=== PATIENT | female | born 1995 | race Hispanic/Latino ===

== ENCOUNTER 2019-12-06 07:59 | Emergency (ER) | payer SELFPAY | END 2019-12-06 09:25 | disposition home or self-care (01) | LOC: EDH 07:59 → EDBD 07:59 → EDH 09:25 | DX: A60.04 Herpesviral vulvovaginitis (principal); E11.9 Type 2 diabetes mellitus without complications; Z88.0 Allergy status to penicillin ==

== ENCOUNTER 2020-08-22 14:42 | Inpatient (IN) | payer SELFPAY ==
[~2020-08-22] VITALS: Ht 160 cm; Wt 86.8 kg
[2020-08-22 16:00] LABS: BASOPHILS % (AUTO) 0.1 % (0.0-5.0); EOSINOPHILS % (AUTO) 0.4 % (0.0-8.0); HEMATOCRIT 38.7 % (36-48); LYMPHOCYTES % (AUTO) 13.8 % (21.0-51.0); MEAN CORPUSCULAR HGB CONC 34.4 g/dL (32.0-36.0); MEAN CORPUSCULAR VOLUME 84.3 fL (79-99); MONOCYTES % (AUTO) 5.1 % (3.0-13.0); NEUTROPHILS % (AUTO) 80.2 % (40.0-77.0); PLATELET COUNT (AUTO) 445 K/uL (130-400); RED BLOOD CELL COUNT(AUTO) 4.59 MIL/uL (4.00-5.50); RED CELL DISTRIBUTION WIDTH 12.1 % (11.0-15.5); WHITE BLOOD COUNT (AUTO) 17.1 K/uL (4.8-10.8)
[2020-08-22] MEDS ORDERED: ONDANSETRON HCL 4 MG/2 ML VIAL ONE (16:05)
[2020-08-22] MEDS ORDERED: KETOROLAC TROMETHAMINE 30MG/ML ONE (16:05)
[2020-08-22 16:19] LABS: CREATININE 0.9 mg/dL (0.5-1.5); POTASSIUM 3.9 mmol/L (3.5-5.1)
[2020-08-22] MEDS ORDERED: IOHEXOL-350 75 ML VIAL IV ONE (16:23)
[2020-08-22 16:26] LABS: ALBUMIN 3.7 g/dL (3.5-5.0); BILIRUBIN,TOTAL 0.6 mg/dL (0.2-1.0); TOTAL PROTEIN, SERUM 8.1 g/dL (6.0-8.3)
[2020-08-22 18:25] LABS: APPEARANCE,URINE Cloudy (CLEAR); BILIRUBIN,URINE Negative (NEGATIVE); COLOR,URINE Yellow (YELLOW); GLUCOSE, URINE (UA) >=1000 mg/dL (NEGATIVE); KETONES,URINE >=80 mg/dL (NEGATIVE); LEUKOCYTE ESTERASE ,URINE Moderate (NEGATIVE); NITRATE,URINE Negative (NEGATIVE); OCCULT BLOOD,URINE Moderate (NEGATIVE); PROTEIN,URINE Trace mg/dL (NEGATIVE)
[2020-08-22 18:31] LABS: HCG,QUAL RESULT NEGATIVE (NEGATIVE)
[2020-08-22 18:41] LABS: BACTERIA,URINE Rare /HPF (None Seen)
[2020-08-22 18:42] LABS: SQUAMOUS EPITHELIAL CELL,UR Moderate /HPF (0-2)
[2020-08-22 18:43] LABS: YEAST,URINE BUDDING Rare /HPF (None Seen)
[2020-08-22 18:46] LABS: MUCUS,URINE Few LPF (None Seen)
[2020-08-22] MEDS ORDERED: ACETAMINOPHEN 325 MG TAB PO PRN ×2 (23:00)
[2020-08-22] MEDS: TAMSULOSIN HCL 0.4 MG CAP.ER.24H PO SCH (23:00)
[2020-08-22] MEDS: SODIUM CHLORIDE 0.9% 1000ML 1,000 ML IV SCH (23:00)
[2020-08-23] MEDS ORDERED: CEFTRIAXONE SODIUM 1 GM ONE (00:16)
[2020-08-23] MEDS ORDERED: KETOROLAC TROMETHAMINE 15MG/ML ONE (00:16)
[2020-08-23] MEDS ORDERED: TAMSULOSIN HCL 0.4 MG CAP.ER.24H ONE (00:18)
[2020-08-23] MEDS ORDERED: SODIUM CHLORIDE 0.9% 50 ML IV ONE (00:20)
[2020-08-23 00:53] LABS: HEMOGLOBIN A1C 9.6 % (4.0-6.0)
[2020-08-23] MEDS: BISACODYL 5 MG TABLET.DR PO SCH ×3 (01:30→19:57)
[2020-08-23] MEDS: DOCUSATE SODIUM 100 MG CAP PO SCH ×3 (01:30→19:57)
[2020-08-23 03:35] LABS: INR 1.05 (0.85-1.15); PROTHROMBIN TIME 11.4 SEC (9.6-11.6)
[2020-08-23 03:36] LABS: PARTIAL THROMBOPLASTIN TIME 27.6 SEC (26.3-35.5)
[2020-08-23 04:00] VITALS: BP 129/56
[2020-08-23] MEDS ORDERED: GLIP5TAB11 PO (04:20)
[2020-08-23] MEDS ORDERED: METF-446 PO (04:20)
[2020-08-23] MEDS: INSULIN HUMULIN R 100 UNIT/ML 3ML SQ SCH ×5 (05:49→23:59)
[2020-08-23 08:00] VITALS: BP 111/79
[2020-08-23] MEDS: TAMSULOSIN HCL 0.4 MG CAP.ER.24H PO SCH ×2 (11:46→19:57)
[2020-08-23] MEDS: FAMOTIDINE/PF 20 MG/2 ML VIAL IV SCH ×2 (11:47→19:57)
[2020-08-23] MEDS: ONDANSETRON HCL 4 MG/2 ML VIAL IV PRN (11:47)
[2020-08-23] MEDS: SODIUM CHLORIDE 0.9% 1000ML 1,000 ML IV SCH (11:51)
[2020-08-23 11:58] VITALS: BP 132/83
[2020-08-23 16:00] VITALS: BP 121/65
[2020-08-23 20:00] VITALS: BP 120/83
[2020-08-23] MEDS: KETOROLAC TROMETHAMINE 15MG/ML IV PRN (20:10)
[2020-08-23] MEDS ORDERED: HYDROMORPHONE HCL 0.5 MG/0.5 ML ML IVP PRN (22:30)
[2020-08-24] VITALS (25 sets, daily range): BP systolic 115–155; BP diastolic 68–86
[2020-08-24] MEDS: CEFTRIAXONE SODIUM 1 GM IV SCH (00:20)
[2020-08-24 05:41] LABS: BASOPHILS % (AUTO) 0.3 % (0.0-5.0); EOSINOPHILS % (AUTO) 1.3 % (0.0-8.0); HEMATOCRIT 34.7 % (36-48); LYMPHOCYTES % (AUTO) 28.5 % (21.0-51.0); MEAN CORPUSCULAR HEMOGLOBIN 28.9 pg (27.0-33.0); MEAN CORPUSCULAR HGB CONC 33.4 g/dL (32.0-36.0); MEAN CORPUSCULAR VOLUME 86.5 fL (79-99); MONOCYTES % (AUTO) 6.5 % (3.0-13.0); PLATELET COUNT (AUTO) 402 K/uL (130-400); RED BLOOD CELL COUNT(AUTO) 4.01 MIL/uL (4.00-5.50); WHITE BLOOD COUNT (AUTO) 11.4 K/uL (4.8-10.8)
[2020-08-24] MEDS: INSULIN HUMULIN R 100 UNIT/ML 3ML SQ SCH ×2 (05:41→12:00)
[2020-08-24 05:47] LABS: CREATININE 0.9 mg/dL (0.5-1.5)
[2020-08-24] MEDS: SODIUM CHLORIDE 0.9% 1000ML 1,000 ML IV SCH (10:00)
[2020-08-24] MEDS: DOCUSATE SODIUM 100 MG CAP PO SCH ×2 (10:29→22:22)
[2020-08-24] MEDS: FAMOTIDINE/PF 20 MG/2 ML VIAL IV SCH ×2 (10:29→22:22)
[2020-08-24] MEDS: BISACODYL 5 MG TABLET.DR PO SCH ×2 (10:30→22:22)
[2020-08-24] MEDS: TAMSULOSIN HCL 0.4 MG CAP.ER.24H PO SCH ×2 (10:30→22:26)
[2020-08-24] MEDS: ONDANSETRON HCL 4 MG/2 ML VIAL IV PRN ×2 (10:36→15:15)
[2020-08-24] MEDS: HYDROMORPHONE HCL 2 MG/ML VIAL IVP PRN ×2 (10:41→15:14)
[2020-08-24] MEDS ORDERED: LIDOCAINE PF 2% 5ML ABBOJECT ONE (18:39)
[2020-08-24] MEDS ORDERED: ONDANSETRON HCL 4 MG/2 ML VIAL ONE (18:39)
[2020-08-24] MEDS ORDERED: ROCURONIUM 10MG/1ML SYR 10 MG/ML ML ONE (18:39)
[2020-08-24] MEDS ORDERED: MIDAZOLAM HCL 1 MG/ML 2ML VIAL ONE (18:39)
[2020-08-24] MEDS ORDERED: FENTANYL CITRATE PF 50 MCG/1 ML 2ML VIAL ONE ×2 (18:40→19:58)
[2020-08-24] MEDS ORDERED: PROPOFOL 10 MG/ML 20ML VIAL IV ONE ×2 (18:40→20:16)
[2020-08-24] MEDS ORDERED: LACTATED RINGERS 1000ML 1,000 ML IV ONE (19:08)
[2020-08-24] MEDS ORDERED: IOHEXOL-350 50ML VIAL IV ONE (19:19)
[2020-08-24] MEDS ORDERED: NEOSTIGMINE 5MG/5ML SYR IV ONE (20:14)
[2020-08-24] MEDS ORDERED: GLYCOPYRROLATE 1 MG/5 ML SYRINGE ONE (20:14)
[2020-08-25 00:25] VITALS: BP 134/76
[2020-08-25] MEDS: CEFTRIAXONE SODIUM 1 GM IV SCH (01:02)
[2020-08-25 01:25] VITALS: BP 125/69
[2020-08-25 04:00] VITALS: BP 120/75
[2020-08-25 05:05] LABS: BASOPHILS % (AUTO) 0.2 % (0.0-5.0); EOSINOPHILS % (AUTO) 0.4 % (0.0-8.0); HEMATOCRIT 34.7 % (36-48); LYMPHOCYTES % (AUTO) 17.4 % (21.0-51.0); MEAN CORPUSCULAR HEMOGLOBIN 28.5 pg (27.0-33.0); MEAN CORPUSCULAR HGB CONC 33.1 g/dL (32.0-36.0); MEAN CORPUSCULAR VOLUME 85.9 fL (79-99); MONOCYTES % (AUTO) 5.2 % (3.0-13.0); NEUTROPHILS % (AUTO) 76.4 % (40.0-77.0); PLATELET COUNT (AUTO) 405 K/uL (130-400); RED BLOOD CELL COUNT(AUTO) 4.04 MIL/uL (4.00-5.50); RED CELL DISTRIBUTION WIDTH 11.9 % (11.0-15.5); WHITE BLOOD COUNT (AUTO) 14.7 K/uL (4.8-10.8)
[2020-08-25 05:21] LABS: ALBUMIN 3.1 g/dL (3.5-5.0); BILIRUBIN,TOTAL 0.4 mg/dL (0.2-1.0); CREATININE 0.7 mg/dL (0.5-1.5); POTASSIUM 3.6 mmol/L (3.5-5.1); TOTAL PROTEIN, SERUM 7.3 g/dL (6.0-8.3)
[2020-08-25] MEDS: KETOROLAC TROMETHAMINE 15MG/ML IV PRN ×2 (06:17→16:37)
[2020-08-25] MEDS: INSULIN HUMULIN R 100 UNIT/ML 3ML SQ SCH ×3 (06:46→11:38)
[2020-08-25 07:48] VITALS: BP 117/76
[2020-08-25] MEDS ORDERED: LEVO500T89 PO (09:09)
[2020-08-25] MEDS: TAMSULOSIN HCL 0.4 MG CAP.ER.24H PO SCH (09:39)
[2020-08-25] MEDS: BISACODYL 5 MG TABLET.DR PO SCH (09:39)
[2020-08-25] MEDS: DOCUSATE SODIUM 100 MG CAP PO SCH (09:39)
[2020-08-25] MEDS: FAMOTIDINE/PF 20 MG/2 ML VIAL IV SCH (09:43)
[2020-08-25 11:19] VITALS: BP 127/79
[2020-08-25] MEDS: ONDANSETRON HCL 4 MG/2 ML VIAL IV PRN (16:37)
== END 2020-08-25 17:52 | disposition home or self-care (01) | DRG 661 ==
LOC: EDH 14:42 → EDHIP 14:43 → 3CH 08-23 03:54
PROVIDERS: ADMIT Internal Medicine; ATTEND Internal Medicine
PROC: 0TC78ZZ Extirpation of Matter from Left Ureter, Via Natural or Artificial Opening Endoscopic (ICD-10-PCS; principal; 2020-08-24 19:24)
PROC: 0T778DZ Dilation of Left Ureter with Intraluminal Device, Via Natural or Artificial Opening Endoscopic (ICD-10-PCS; 2020-08-24 19:24)
DX: N13.6 Pyonephrosis (principal); E11.65 Type 2 diabetes mellitus with hyperglycemia; K59.04 Chronic idiopathic constipation; F17.210 Nicotine dependence, cigarettes, uncomplicated; E87.8 Other disorders of electrolyte and fluid balance, not elsewhere classified; Z79.84 Long term (current) use of oral hypoglycemic drugs; Z88.0 Allergy status to penicillin
CPT/HCPCS: 36415; 74018; 74177; 80048; 80053; 81001; 81025; 82150; 82360; 82948; 83036; 83690; 84145; 84550; 84702; 85025; 85610; 85730; 87088; C1758; C1894; C2617; G0378; J0696; J1170; J1815; J1885; J2001; J2250; J2405; J2704; J2710; J3010; J3490; J7120; Q9967